=== PATIENT | female | born 1985 | race Caucasian/White ===

== ENCOUNTER 2019-04-15 01:20 | Emergency (ER) | payer SELFPAY ==
[~2019-04-15] VITALS: Ht 154.9 cm; Wt 82.0 kg
[2019-04-15 01:32] VITALS: BP 141/73
== END 2019-04-15 03:41 | disposition left against medical advice (07) ==
LOC: ER 01:20
DX: Z53.21 Procedure and treatment not carried out due to patient leaving prior to being seen by health care provider (principal)

== ENCOUNTER 2019-07-19 13:30 | Emergency (ER) | payer SELFPAY | END 2019-07-19 14:26 | disposition left against medical advice (07) | LOC: ER 13:30 | DX: Z53.21 Procedure and treatment not carried out due to patient leaving prior to being seen by health care provider (principal) ==

== ENCOUNTER 2019-08-19 11:01 | Emergency (ER) | payer SELFPAY ==
[~2019-08-19] VITALS: Ht 154.9 cm; Wt 68.0 kg
[2019-08-19 12:19] VITALS: BP 115/74
== END 2019-08-19 12:21 | disposition home or self-care (01) ==
LOC: ER 11:01
DX: R09.89 Other specified symptoms and signs involving the circulatory and respiratory systems (principal); F17.200 Nicotine dependence, unspecified, uncomplicated; F12.10 Cannabis abuse, uncomplicated; Z98.890 Other specified postprocedural states
CPT/HCPCS: 70360; 81025; 99283; 99406